=== PATIENT | male | born 1955 | race Caucasian/White ===

== ENCOUNTER 2021-12-07 09:40 | Emergency (ER) | payer MEDICARE, OTHER ==
[2021-12-07] MEDS: Aspirin 81 MG Tab.Chew PO ONE (10:08)
[2021-12-07] MEDS: Nitroglycerin 0.4 MG Tab.SL SL ONE (10:09)
[2021-12-07] MEDS: Aspirin 81 MG Tab.Chew ONE (10:12)
[2021-12-07 10:32] LABS: ANION GAP 12.1 mmol/L (5-15); CHLORIDE,CL 100 mmol/L (98-107); SODIUM,NA 136 mmol/L (136-145)
[2021-12-07] MEDS: Sodium Chloride 0.9% 1,000 ML IV ONE (11:15)
[2021-12-07] MEDS: Nitroglycerin 0.4 MG Tab.SL SL PRN (13:54)
== END 2021-12-07 14:01 | disposition home or self-care (01) ==
LOC: KA.ED 09:40
DX: R07.89 Other chest pain (principal); Z79.899 Other long term (current) drug therapy
CPT/HCPCS: 36415; 71045; 80048; 84484; 85025; 93010; 99284; 99285-25; A9270-GY; J7030